=== PATIENT | female | born 1985 | race Asian ===

== ENCOUNTER 2018-04-08 23:14 | Emergency (ER) | payer OTHER ==
--- NOTE | 2018-04-08 23:19 | ER Report ---
History and Physical Time Seen By MD: 23:18 HPI/ROS CHIEF COMPLAINT: Vaginal bleeding HISTORY OF PRESENT ILLNESS: Patient is a 32-year-old female here with complaints of vaginal bleeding, lower back cramping which started shortly prior to arrival in the setting of 9 weeks . Patient reports that last week she had an ultrasound the ORTHO ASSISTANT at which time there is no heartbeat noticed that a yolk sack was present in the uterine cavity. This is the patient's 2nd , the 1st ended in a miscarriage at approximately 15 weeks' gestation. Patient noted having a pink tinge to her urine which prompted evaluation today. Patient denies abdominal pain, fevers, chills, chest pain, shortness breath, nausea, vomiting. REVIEW OF SYSTEMS: Constitutional: No fever, no chills. Eyes: No discharge. ENT: No sore throat. Cardiovascular: No chest pain, no palpitations. Respiratory: No cough, no shortness of breath. Gastrointestinal: No abdominal pain, no vomiting. Genitourinary: + hematuria Musculoskeletal: + low back cramping pain. Skin: No rashes. Neurological: No headache. Allergies: Coded Allergies: No Known Drug Allergies (Unverified , 04/08/18) Home Meds Reported Medications Vits W-Ca,Fe,Fa(<1MG) ( VITAMINS) 1 Each Tablet, 1 EACH PO DAILY, TAB 04/08/18 Calcium Carbonate (TUMS) 200 Mg Tab.chew, 200 MG PO, TAB.CHEW 04/08/18 Constitutional Vital Sign - Last 24 Hours 04/08/18 04/08/18 04/08/18 04/08/18 23:14 23:19 23:20 23:29 Temp 98.6 Pulse ??? 75 88 Resp 14 B/P (MAP) 120/69 120/69 (86) Pulse Ox 98 98 O2 Delivery Room Air 04/08/18 04/08/18 04/08/18 04/09/18 23:30 23:44 23:59 00:00 Pulse 77 ??? B/P (MAP) 125/68 (87) 98/59 (72) 92/57 (69) Pulse Ox 96 04/09/18 04/09/18 04/09/18 04/09/18 00:14 00:29 00:30 00:44 Pulse ? 73 B/P (MAP) 92/57 (69) Pulse Ox 99 98 04/09/18 04/09/18 04/09/18 04/09/18 00:49 01:00 01:04 01:34 Pulse ? B/P (MAP) ???/??? (1665) 04/09/18 04/09/18 04/09/18 04/09/18 02:00 02:01 02:04 02:19 Pulse 73 76 B/P (MAP) 92/34 (53) 91/53 (66) Pulse Ox 96 98 Intake and Output 04/08/18 04/08/18 04/09/18 15:00 23:00 07:00 Intake Total 1000 ml Balance 1000 ml Physical Exam General Appearance: The patient is alert, has no immediate need for airway protection and no signs of toxicity. No acute distress Eyes: Pupils equal and round no pallor or injection. ENT, Mouth: Mucous membranes are moist. Respiratory: There are no retractions, lungs are clear to auscultation. Cardiovascular: Regular rate and rhythm. Gastrointestinal: Abdomen is soft and non tender, no masses, bowel sounds normal. Neurological: No focal neurological deficits Skin: Warm and dry, no rashes. Musculoskeletal: Neck is supple non tender. Extremities are nontender, nonswollen and have full range of motion. DIFFERENTIAL DIAGNOSIS: After history and physical exam differential diagnosis was considered for hematuria, dysfunctional uterine bleeding, miscarriage, threatened Medical Decision Making Data Points Result Diagram: 04/08/18 7706 04/08/18 2354 Laboratory Hematology Test 04/08/18 23:20 04/08/18 23:54 Urine Color Colorless Urine Clarity Clear Urine pH 6.0 pH (4.8-9.5) Urine Specific [place] 1.003 Urine Protein Negative mg/dL (NEGATIVE) Urine Glucose (UA) Negative mg/dL (NEGATIVE) Urine Ketones Negative mg/dL (NEGATIVE) Urine Blood Small (NEGATIVE) Urine Nitrite Negative (NEGATIVE) Urine Bilirubin Negative (NEGATIVE) Urine Urobilinogen Negative mg/dL (0.2-1.9) Urine Leukocyte Esterase Negative (NEGATIVE) Urine RBC None /HPF (0-2/HPF) Urine WBC <1 /HPF (0-5/HPF) Urine Squamous Epithelial Cells Many /LPF (</=FEW) Urine Bacteria Negative /HPF (NONE-FEW) Urine Mucus None /HPF (NONE-FEW) Red Blood Count 4.49 M/uL (4.17-5.56) Mean Corpuscular Volume 91.3 fL (80.0-96.0) Mean Corpuscular Hemoglobin 31.6 pg (26.0-33.0) Mean Corpuscular Hemoglobin Concent 34.6 g/dL (32.0-36.0) Red Cell Distribution Width 12.9 % (11.5-14.5) Mean Platelet Volume 6.9 fL (7.2-11.1) Neutrophils (%) (Auto) 55.6 % (39.4-72.5) Lymphocytes (%) (Auto) 34.6 % (17.6-49.6) Monocytes (%) (Auto) 5.7 % (4.1-12.4) Eosinophils (%) (Auto) 2.8 % (0.4-6.7) Basophils (%) (Auto) 1.3 % (0.3-1.4) Nucleated RBC Relative Count (auto) 0.1 /100WBC Neutrophils # (Auto) 4.9 K/uL (2.0-7.4) Lymphocytes # (Auto) 3.0 K/uL (1.3-3.6) Monocytes # (Auto) 0.5 K/uL (0.3-1.0) Eosinophils # (Auto) 0.2 K/uL (0.0-0.5) Basophils # (Auto) 0.1 K/uL (0.0-0.1) Nucleated RBC Absolute Count (auto) 0.01 K/uL Sodium Level 139 mmol/L (137-145) Potassium Level 3.4 mmol/L (3.5-5.0) Chloride Level 103 mmol/L (98-107) Carbon Dioxide Level 22 mmol/L (22-31) Blood Urea Nitrogen 7 mg/dl (7-18) Creatinine 0.60 mg/dl (0.52-1.04) Glomerular Filtration Rate Calc > 60.0 Random Glucose 91 mg/dl (75-110) Calcium Level 9.4 mg/dl (8.4-10.2) Total Bilirubin 0.3 mg/dl (0.2-1.3) Aspartate Amino Transf (AST/SGOT) 33 U/L (0-35) Alanine Aminotransferase (ALT/SGPT) 21 U/L (0-56) Alkaline Phosphatase 51 U/L (0-126) Total Protein 7.8 g/dl (6.3-8.2) Albumin 4.4 g/dl (3.5-5.0) Lipase 69 U/L (23-300) Human Chorionic Gonadotropin, Quant 83009 mIU/ml Chemistry Test 04/08/18 23:20 04/08/18 23:54 Urine Color Colorless Urine Clarity Clear Urine pH 6.0 pH (4.8-9.5) Urine Specific [place] 1.003 Urine Protein Negative mg/dL (NEGATIVE) Urine Glucose (UA) Negative mg/dL (NEGATIVE) Urine Ketones Negative mg/dL (NEGATIVE) Urine Blood Small (NEGATIVE) Urine Nitrite Negative (NEGATIVE) Urine Bilirubin Negative (NEGATIVE) Urine Urobilinogen Negative mg/dL (0.2-1.9) Urine Leukocyte Esterase Negative (NEGATIVE) Urine RBC None /HPF (0-2/HPF) Urine WBC <1 /HPF (0-5/HPF) Urine Squamous Epithelial Cells Many /LPF (</=FEW) Urine Bacteria Negative /HPF (NONE-FEW) Urine Mucus None /HPF (NONE-FEW) White Blood Count 8.8 k/uL (4.5-11.0) Red Blood Count 4.49 M/uL (4.17-5.56) Hemoglobin 14.2 g/dL (12.0-16.0) Hematocrit 41.0 % (34.0-47.0) Mean Corpuscular Volume 91.3 fL (80.0-96.0) Mean Corpuscular Hemoglobin 31.6 pg (26.0-33.0) Mean Corpuscular Hemoglobin Concent 34.6 g/dL (32.0-36.0) Red Cell Distribution Width 12.9 % (11.5-14.5) Platelet Count 278 K/uL (150-450) Mean Platelet Volume 6.9 fL (7.2-11.1) Neutrophils (%) (Auto) 55.6 % (39.4-72.5) Lymphocytes (%) (Auto) 34.6 % (17.6-49.6) Monocytes (%) (Auto) 5.7 % (4.1-12.4) Eosinophils (%) (Auto) 2.8 % (0.4-6.7) Basophils (%) (Auto) 1.3 % (0.3-1.4) Nucleated RBC Relative Count (auto) 0.1 /100WBC Neutrophils # (Auto) 4.9 K/uL (2.0-7.4) Lymphocytes # (Auto) 3.0 K/uL (1.3-3.6) Monocytes # (Auto) 0.5 K/uL (0.3-1.0) Eosinophils # (Auto) 0.2 K/uL (0.0-0.5) Basophils # (Auto) 0.1 K/uL (0.0-0.1) Nucleated RBC Absolute Count (auto) 0.01 K/uL Glomerular Filtration Rate Calc > 60.0 Calcium Level 9.4 mg/dl (8.4-10.2) Total Bilirubin 0.3 mg/dl (0.2-1.3) Aspartate Amino Transf (AST/SGOT) 33 U/L (0-35) Alanine Aminotransferase (ALT/SGPT) 21 U/L (0-56) Alkaline Phosphatase 51 U/L (0-126) Total Protein 7.8 g/dl (6.3-8.2) Albumin 4.4 g/dl (3.5-5.0) Lipase 69 U/L (23-300) Human Chorionic Gonadotropin, Quant 22596 mIU/ml Urinalysis Test 04/08/18 23:20 Urine Color Colorless Urine Clarity Clear Urine pH 6.0 pH (4.8-9.5) Urine Specific [place] 1.003 Urine Protein Negative mg/dL (NEGATIVE) Urine Glucose (UA) Negative mg/dL (NEGATIVE) Urine Ketones Negative mg/dL (NEGATIVE) Urine Blood Small (NEGATIVE) Urine Nitrite Negative (NEGATIVE) Urine Bilirubin Negative (NEGATIVE) Urine Urobilinogen Negative mg/dL (0.2-1.9) Urine Leukocyte Esterase Negative (NEGATIVE) Urine RBC None /HPF (0-2/HPF) Urine WBC <1 /HPF (0-5/HPF) Urine Squamous Epithelial Cells Many /LPF (</=FEW) Urine Bacteria Negative /HPF (NONE-FEW) Urine Mucus None /HPF (NONE-FEW) EKG/Imaging Imaging EXAMINATION: FIRST TRIMESTER TRANSABDOMINAL AND TRANSVAGINAL ULTRASOUND WITH DOPPLER DATE: 04/09/2018 1:26 AM INDICATION: , vaginal bleeding. TECHNIQUE: Transabdominal and transvaginal grayscale, color, and pulsed Doppler examination of the uterus and adnexa was performed. COMPARISON: None. FINDINGS: LMP: 02/03/2018. Estimated gestational age by LMP: 9 weeks 2 days. Estimated date of delivery by LMP: 11/10/2018 The uterus is anteverted and anteflexed. There is a single fetus within a single gestational sac. The crown-rump length of the fetus measures 4.10 mm, consistent with a gestational age of 6 weeks 1 day. No heart tones detected. There is no definite evidence of subchorionic hemorrhage. There is a small volume of fluid in the endocervical canal. Ill-defined heterogeneous ovoid lesion in the left myometrium near the fundus may represent a leiomyoma and measures 1.3 x 2.2 x 1.9 cm. The right ovary measures 3.0 x 1.8 x 2.3 cm and demonstrates normal follicles and normal spectral waveform of the arterial and venous blood flow. The left ovary is suboptimally visualized. There is no free fluid or abnormal adnexal mass in the pelvic cavity. IMPRESSION: 1. Single intrauterine with a crown-rump consistent with gestational age of 6 weeks 1 day with an estimated date of delivery of 11/29/2018, compared to the estimated gestational age by LMP of 9 weeks 2 days. No heart tones are detected, though this could be due to early gestational age. Recommend follow-up beta hCGs and imaging as indicated. 2. Small volume of fluid in the endocervical canal of uncertain significance. 3. Ill-defined heterogeneous ovoid lesion in the left myometrium near the fundus may represent a leiomyoma and measures up to 2.2 cm in diameter. ED Course/Re-evaluation ED Course Patient is a 32-year-old female here with complaints of vaginal bleeding which occurred shortly prior to arrival. Patient has a history significant for prior miscarriage at approximately 15 weeks' gestation. Last week the patient had an OB ultrasound which showed no cardiac activity. Patient reported that her gestational age is approximately 9 weeks. Labs were found to be unremarkable. Patient follows obstetrics outside of our hospital system so reference labs were unavailable. Beta-hCG was collected and was applied to the patient and discharge paperwork so that she can compare on follow-up lab findings in order to trend her beta hCG. Ultrasound today showed no cardiac activity however it did identify an intrauterine fetus which was consistent with 6 weeks gestation. It is unclear what the significance of this finding is. Patient received normal saline bolus of fluid for hydration. I updated the patient and the patient's significant other regarding lab findings and imaging findings and advised them to follow-up with obstetrics next week in order to trend beta-hCG and consider repeat imaging. Patient patient's significant other voiced understanding of plan. Decision to Disposition Date: Apr 09, 2018 Decision to Disposition Time: 02:40 Depart Departure Latest Vital Signs Vital Signs Date Time Temp Pulse Resp B/P (MAP) Pulse Ox O2 Delivery O2 Flow Rate FiO2 04/09/18 02:19 76 98 04/09/18 02:01 91/53 (66) 04/08/18 23:19 98.6 14 Room Air Impression: Primary Impression: Vaginal bleeding in Condition: Improved Disposition: HOME OR SELF-CARE Patient Instructions: at 7 to 10 Weeks (ED) Additional Instructions: Your lab values have been included in your discharge instructions. Please follow-up within the next week with here obstetrics doctor in order to further evaluate your . Your doctor may consider repeating lab values or imaging as needed. Please return promptly if he develops fever, abdominal pain, nausea, vomiting. BRAD ROONEY DO Apr 08, 2018 23:19
[2018-04-08] MEDS ORDERED: CALC-515 PO (23:24)
[2018-04-08] MEDS ORDERED: PREN-127 PO (23:24)
[2018-04-08] MEDS ORDERED: NS(*) 0.9% 1000 ML BAG 1,000 ML IV ONE (23:35)
[2018-04-09 00:04] LABS: PLATELET COUNT, AUTOMATED 278 K/uL (150-450)
[2018-04-09 02:01] VITALS: BP 91/53
--- NOTE | 2018-04-09 02:13 | RADIOLOGY IMAGING REPORT ---
FACILITY: [facility] [place] PATIENT NAME: Jeanette Damon : 1985 MR: [id number] V: [id number] EXAM DATE: [id number] ORDERING PHYSICIAN: BRAD ROONEY TECHNOLOGIST: Location: [facility] [place] Patient: Jeanette Damon : 1985 Visit/Account:[id number] Date of Sevice: 04/09/2018 EXAMINATION: FIRST TRIMESTER TRANSABDOMINAL AND TRANSVAGINAL ULTRASOUND WITH DOPPLER DATE: 04/09/2018 1:26 AM INDICATION: , vaginal bleeding. TECHNIQUE: Transabdominal and transvaginal grayscale, color, and pulsed Doppler examination of the ut erus and adnexa was performed. COMPARISON: None. FINDINGS: LMP: 02/03/2018. Estimated gestational age by LMP: 9 weeks 2 days. Estimated date of delivery by LMP: 11/10/2018 The uterus is anteverted and anteflexed. There is a single fetus within a single gestational sac. The crown-rump length of the fetus measures 4.10 mm, consistent with a gestational age of 6 weeks 1 day. No heart tones detected. There is no definite evidence of subchorionic hemorrhage. There is a small volume of fluid in the endocervical canal. Ill-defined heterogeneous ovoid lesion in the lef t myometrium near the fundus may represent a leiomyoma and measures 1.3 x 2.2 x 1.9 cm. The right ovary measures 3.0 x 1.8 x 2.3 cm and demonstrates normal follicles and normal spectral wav eform of the arterial and venous blood flow. The left ovary is suboptimally visualized. There is no free fluid or abnormal adnexal mass in the pelvic cavity. IMPRESSION: 1. Single intrauterine with a crown-rump consistent with gestational age of 6 weeks 1 day with an estimated date of delivery of 11/29/2018, compared to the estimated gestational age by LMP of 9 weeks 2 days. No heart tones are detected, though this could be due to early gestational age . Recommend follow-up beta hCGs and imaging as indicated. 2. Small volume of fluid in the endocervical canal of uncertain significance. 3. Ill-defined heterogeneous ovoid lesion in the left myometrium near the fundus may represent a lei omyoma and measures up to 2.2 cm in diameter. Report Dictated By: Andrea Julien MD at 04/09/2018 2:00 AM Report E-Signed By: Andrea Julien MD at 04/09/2018 2:08 AM WSN:[id number]
== END 2018-04-09 02:40 | disposition home or self-care (01) ==
LOC: ER 23:38
DX: O02.9 Abnormal product of conception, unspecified (principal); Z3A.01 Less than 8 weeks gestation of pregnancy
CPT/HCPCS: 76817; 81001; 83690; 84702; 85025; 96360; 99284; J7030; 82040; 82247; 82310; 82374; 82435; 82565; 82947; 84075; 84132; 84155; 84295; 84450; 84460; 84520